=== PATIENT | female | born 1985 | race Caucasian/White ===

== ENCOUNTER 2018-01-03 07:46 | Emergency (ER) | payer BC, OTHER ==
[~2018-01-03] VITALS: Ht 160 cm; Wt 65.7 kg
[~2018-01-03 07:46] MED LIST: FAMO-1 PO; HYDR-3965 PO; IBUP-1986 PO; PENI500T2 PO
[2018-01-03 07:48] VITALS: BP 96/69
[2018-01-03] MEDS ORDERED: amoxicillin 250mg capsule PO ONE (08:15)
[2018-01-03] MEDS ORDERED: AMOX500C2 PO (08:15)
== END 2018-01-03 08:29 | disposition home or self-care (01) ==
LOC: ER 07:46
DX: K08.89 Other specified disorders of teeth and supporting structures (principal); Z79.899 Other long term (current) drug therapy; Z56.0 Unemployment, unspecified
CPT/HCPCS: 99283; J7030

== ENCOUNTER 2018-03-03 18:42 | Emergency (ER) | payer SELFPAY ==
[~2018-03-03] VITALS: Ht 160 cm; Wt 66.4 kg
[2018-03-03 18:47] VITALS: BP 124/73
[2018-03-03] MEDS ORDERED: LIDOcaine 1.5% w/epinephrine 1:200,000 5ml ampul IJ ONE (19:15)
[2018-03-03] MEDS ORDERED: PENI500T2 PO (19:32)
[2018-03-03] MEDS ORDERED: ANBESOL TP (19:32)
[2018-03-03] MEDS ORDERED: NAPR-56 PO (19:32)
[2018-03-03] MEDS ORDERED: BACDS PO (19:53)
[2018-03-03 21:03] LABS: URINE HCG NEGATIVE (NEG)
== END 2018-03-03 21:22 | disposition home or self-care (01) ==
LOC: ER 18:42
DX: L02.415 Cutaneous abscess of right lower limb (principal); Z56.0 Unemployment, unspecified; Z79.899 Other long term (current) drug therapy
CPT/HCPCS: 10060; 81025; 99283; A6266; A6449; J3490

== ENCOUNTER 2018-11-18 13:17 | Emergency (ER) | payer SELFPAY ==
[~2018-11-18] VITALS: Ht 160 cm; Wt 62.2 kg
[2018-11-18 13:54] VITALS: BP 92/60
[2018-11-18] MEDS ORDERED: CHLO473M3 PO (14:02)
[2018-11-18] MEDS ORDERED: CLIN300C71 PO (14:02)
[2018-11-18] MEDS ORDERED: TRAM50TA2 PO (14:02)
== END 2018-11-18 14:12 | disposition home or self-care (01) ==
LOC: ER 13:17
DX: K04.7 Periapical abscess without sinus (principal); F17.200 Nicotine dependence, unspecified, uncomplicated; Z56.0 Unemployment, unspecified; Z79.899 Other long term (current) drug therapy
CPT/HCPCS: 99283